=== PATIENT | female | born 1990 | race Caucasian/White ===

== ENCOUNTER 2018-04-20 13:20 | Emergency (ER) | payer OTHER ==
[2018-04-20 13:26] VITALS: BP 131/76; PULSE 66; TEMP 98.6; BMI 34.9
--- NOTE | 2018-04-20 13:55 | PDOC ---
History of Present Illness - General Chief Complaint: Injury Stated Complaint: FALL Time Seen by Provider: 04/20/18 13:22 History Source: Patient Exam Limitations: No Limitations - History of Present Illness Initial Comments: 04/20/18 13:45 Miss Samuels is a otherwise healthy 27-year-old female h/o idiopathic intracranial hypertension who presents emergency department for evaluation status post slip and fall this morning. She stepped on ice as she exited her car, slipped on ice and fell on buttocks She denies loss of consciousness, she denies head trauma. Patient fell onto her buttocks. She's individually with no difficulty. She is currently 11 weeks and is concerned about her . She denies pelvic pain, cramping. She denies vaginal bleeding. PMH: IIH, PSH: denies Meds: denies ALL: NKDA Social: denies toxic habits FH: non contributory ROS: GENERAL/CONSTITUTIONAL: No: fever, chills, weakness HEAD, EYES, EARS, NOSE AND THROAT: No: change in vision, ear pain, discharge, sore throat, throat swelling. CARDIOVASCULAR: No: chest pain, lightheadedness, palpitations, syncope RESPIRATORY: No: cough, shortness of breath, wheezing GASTROINTESTINAL: No: nausea, vomiting, diarrhea, abdominal cramping GENITOURINARY: No: dysuria, hematuria MUSCULOSKELETAL: No: back pain, neck pain, joint pain, muscle swelling or pain SKIN: No: bruising NEUROLOGIC: No: headache, vertigo, paresthesias, weakness PE: GENERAL: The patient is in no acute distress. HEAD: Normal with no signs of trauma. EYES: PERRLA, EOMI, sclera anicteric, conjunctiva clear. ENT: Ears normal, nares patent, oropharynx clear without exudates. Moist mucous membranes. NECK: Normal range of motion, supple without lymphadenopathy, JVD, or masses. LUNGS: Breath sounds equal, clear to auscultation bilaterally. No wheezes, and no crackles. HEART:Regular rate and rhythm, normal S1 and S2 without murmur, rub or gallop. ABDOMEN: Soft, nontender, normoactive bowel sounds. No guarding, no rebound. No masses palpable. EXTREMITIES: Normal range of motion, no edema. No clubbing or cyanosis. No erythema, or tenderness. NEUROLOGICAL: Cranial nerves II through XII grossly intact. Normal speech. No focal neurological deficits. MUSCULOSKELETAL: Back non-tender to palpation, no CVA tenderness SKIN: Warm, Dry, normal turgor, no rashes or lesions noted. 04/20/18 14:01 Past History - Past Medical History Allergies/Adverse Reactions: Allergies Allergy/AdvReac Type Severity Reaction Status Date / Time No Known Allergies Allergy Verified 04/20/18 13:21 Anemia: Yes (sickle cell) COPD: No Other medical history: Leukocytosis, intracranial HTN - Suicide/Smoking/Psychosocial Hx Smoking Status: No Smoking History: Never smoked Have you smoked in the past 12 months: No Number of Cigarettes Smoked Daily: 0 Information on smoking cessation initiated: No Hx Alcohol Use: No Drug/Substance Use Hx: No Substance Use Type: None Hx Substance Use Treatment: No *Physical Exam - Vital Signs Last Vital Signs Temp Pulse Resp BP Pulse Ox 98.6 F 66 18 131/76 100 04/20/18 13:21 04/20/18 13:21 04/20/18 13:21 04/20/18 13:21 04/20/18 13:21 Moderate Sedation - Procedure Monitoring Vital Signs: Procedure Monitoring Vital Signs Temperature 98.6 F 04/20/18 13:21 Pulse Rate 66 04/20/18 13:21 Respiratory Rate 18 04/20/18 13:21 Blood Pressure 131/76 04/20/18 13:21 O2 Sat by Pulse Oximetry (%) 100 04/20/18 13:21 Medical Decision Making - Medical Decision Making 04/20/18 13:55 27 yo F presenting to the ER to evaluate her s/p mechanical fall onto her bottom No vaginal bleeding 04/20/18 15:30 US: IUP 11 weeks, FHR 175 bpm Nml vascular flow to both ovaries (+) fibroid *DC/Admit/Observation/Transfer Diagnosis at time of Disposition: Qualifiers: Weeks of gestation: 11 weeks Qualified Code(s): Z3A.11 - 11 weeks gestation of - Discharge Dispostion Disposition: HOME Condition at time of disposition: Stable Decision to Admit order: No - Referrals - Patient Instructions Printed Discharge Instructions: DI for -- Discomforts and Remedies, How to Prevent Falls Additional Instructions: Ms Samuels Please review your Ultrasound Return to the emergency department immediately with ANY new, persistent or worsening symptoms. Continue any medications as previously prescribed by your physician. You should follow up with your primary doctor as soon as possible regarding today's emergency department visit. . Please make sure your doctor reviews the results of your emergency evaluation. Thank you for coming to the [facility] today for your care. It was a pleasure to see you today. Please note that your evaluation is INCOMPLETE until you follow-up with your doctor. - Post Discharge Activity
== END 2018-04-20 15:52 | disposition home or self-care (01) ==
LOC: FER 13:20
DX: O26.891 Other specified pregnancy related conditions, first trimester (principal); Z3A.11 11 weeks gestation of pregnancy; W00.0XXA Fall on same level due to ice and snow, initial encounter; Y93.89 Activity, other specified; Y92.89 Other specified places as the place of occurrence of the external cause
CPT/HCPCS: 76817-TC; 99281-25

== ENCOUNTER 2022-01-17 18:46 | Observation (INO) | payer OTHER ==
[2022-01-17 19:09] VITALS: BMI 36.2
[2022-01-17] MEDS ORDERED: SODIUM CHLORIDE 0.9% 500 ML INFUS.BAG IV ONE (22:28)
[2022-01-17] MEDS ORDERED: ONDANSETRON 4 MG/2 ML VIAL IVPUSH ONE (22:29)
[2022-01-17] MEDS ORDERED: KETOROLAC TROMETHAMINE 30 MG/1 ML VIAL IVPUSH ONE (22:29)
[2022-01-17] MEDS ORDERED: ONDANSETRON 4 MG/2 ML VIAL ONE (22:32)
[2022-01-17] MEDS ORDERED: KETOROLAC TROMETHAMINE 30 MG/1 ML VIAL ONE (22:32)
[2022-01-17 23:00] LABS: URINE APPEARANCE CLEAR; URINE BILIRUBIN NEGATIVE (NEGATIVE); URINE COLOR YELLOW; URINE GLUCOSE (UA) NEGATIVE (NEGATIVE); URINE KETONE NEGATIVE (NEGATIVE); URINE LEUK ESTERASE NEGATIVE (NEGATIVE); URINE NITRITE NEGATIVE (NEGATIVE); URINE PROTEIN NEGATIVE (NEGATIVE)
[2022-01-17 23:03] LABS: HCG,QUALITATIVE URINE Negative
[2022-01-17] MEDS ORDERED: PHENAZOPYRIDINE HCL 100 MG TABLET (FP) ONE (23:08)
[2022-01-17 23:12] LABS: BASO % 0.5 % (0-2.0); HEMOGLOBIN 11.8 GM/dL (10.7-15.3)
[2022-01-17 23:18] LABS: EOS % 1.9 % (0-4.5); HEMATOCRIT 34.4 % (32.4-45.2); LYMPH % 25.2 % (8-40); MCH 23.8 pg (25.7-33.7); MCHC 34.3 g/dl (32.0-36.0); MEAN CELL VOLUME 69.4 fl (80-96); MONO % 8.5 % (3.8-10.2); NEUT % 63.9 % (42.8-82.8); PLATELET COUNT 213 10^3/uL (134-434); RBC 4.96 M/mm3 (3.60-5.2); RDW 22.5 % (11.6-15.6); WHITE BLOOD COUNT 22.2 K/mm3 (4.0-10.0)
[2022-01-17] MEDS ORDERED: PHENAZOPYRIDINE HCL 100 MG TABLET (FP) PO ONE (23:18)
[2022-01-17 23:34] LABS: CALCIUM 9.1 mg/dL (8.5-10.1)
[2022-01-17 23:35] LABS: ALBUMIN 4.1 g/dl (3.4-5.0); BLOOD UREA NITROGEN 10.1 mg/dL (7-18)
[2022-01-17 23:38] LABS: CREATININE 0.8 mg/dL (0.55-1.3)
[2022-01-17 23:40] LABS: BILIRUBIN,TOTAL 2.4 mg/dL (0.2-1); TOT PROT 7.8 g/dl (6.4-8.2)
[2022-01-18 00:55] LABS: ANISOCYTOSIS 2+; MACROCYTOSIS 0; TARGET CELLS 2+; TEAR DROP CELLS 2+
[2022-01-18] MEDS ORDERED: DOXYCYCLINE HYCLATE 100 MG CAPSULE PO ONE ×2 (04:03→05:39)
[2022-01-18] MEDS ORDERED: CEFTRIAXONE 1,000 MG in DEXTROSE 5%-WATER - 50 ML IVPB ONE (04:03)
[2022-01-18] MEDS ORDERED: CEFTRIAXONE 1 GM/50 ML BAG ONE ×2 (05:39→10:21)
[2022-01-18] MEDS ORDERED: KETOROLAC TROMETHAMINE 15 MG/ML VIAL ONE ×2 (07:54→18:44)
[2022-01-18] MEDS: KETOROLAC TROMETHAMINE 15 MG/ML VIAL IVPUSH PRN ×2 (08:01→18:47)
[2022-01-18] MEDS ORDERED: PHENAZOPYRIDINE HCL 100 MG TABLET (FP) PO SCH (09:00)
[2022-01-18] MEDS ORDERED: CEFTRIAXONE 1,000 MG in DEXTROSE 5%-WATER - 50 ML IVPB SCH (10:00)
[2022-01-18] MEDS ORDERED: ENOXAPARIN NA (PORCINE) 40 MG/0.4 ML DISP.SYRIN SQ ONE (10:20)
[2022-01-18] MEDS: ENOXAPARIN NA (PORCINE) 40 MG/0.4 ML DISP.SYRIN SQ SCH (10:27)
[2022-01-18 10:28] LABS: BASO % 0.3 % (0-2.0); EOS % 2.3 % (0-4.5); HEMATOCRIT 29.9 % (32.4-45.2); HEMOGLOBIN 10.3 GM/dL (10.7-15.3); MCHC 34.5 g/dl (32.0-36.0); MEAN CELL VOLUME 69.6 fl (80-96); MEAN PLT VOLUME 9.5 fl (7.5-11.1); NEUT % 68.4 % (42.8-82.8); RDW 22.1 % (11.6-15.6); WHITE BLOOD COUNT 14.7 K/mm3 (4.0-10.0)
[2022-01-18 10:37] LABS: PLATELET COUNT 141 10^3/uL (134-434)
[2022-01-18 10:42] LABS: CHLORIDE 106 mmol/L (98-107); SODIUM 139 mmol/L (136-145)
[2022-01-18 10:48] LABS: GLUCOSE,RANDOM 112 mg/dL (74-106)
[2022-01-18 10:49] LABS: ALBUMIN 3.5 g/dl (3.4-5.0); ANION GAP 8 MMOL/L (8-16); BLOOD UREA NITROGEN 10.1 mg/dL (7-18); CALCIUM 8.5 mg/dL (8.5-10.1); CO2 24 mmol/L (21-32); MAGNESIUM 1.8 mg/dL (1.8-2.4)
[2022-01-18 10:52] LABS: SGOT/AST 16 U/L (15-37); SGPT/ALT 28 U/L (13-61)
[2022-01-18 10:53] LABS: BILIRUBIN,TOTAL 2.3 mg/dL (0.2-1); CREATININE 0.7 mg/dL (0.55-1.3); PHOSPHOROUS 3.7 mg/dL (2.5-4.9); TOT PROT 6.6 g/dl (6.4-8.2)
[2022-01-18 10:54] LABS: ALK PHOS 93 U/L (45-117)
[2022-01-18 11:04] LABS: PLATELET ESTIMATE ADEQUATE
[2022-01-18] MEDS ORDERED: DOXYCYCLINE HYCLATE 100 MG VIAL ONE (12:29)
[2022-01-18] MEDS: DOXYCYCLINE INJECTION 100 MG in DEXTROSE 5%-WATER 100 ML IVPB SCH ×2 (12:47→22:37)
[2022-01-18] MEDS ORDERED: ONDANSETRON 4 MG/2 ML VIAL ONE (13:12)
[2022-01-18] MEDS ORDERED: ONDANSETRON 4 MG/2 ML VIAL IVPUSH ONE ×2 (14:00→21:21)
[2022-01-18] MEDS ORDERED: PHENAZOPYRIDINE HCL 100 MG TABLET (FP) PO ONE (23:07)
[2022-01-19] MEDS: DOXYCYCLINE INJECTION 100 MG in DEXTROSE 5%-WATER 100 ML IVPB SCH ×2 (09:48→21:52)
[2022-01-19] MEDS: CEFTRIAXONE 1 GM in DEXTROSE 5%-WATER - 50 ML IVPB SCH (09:48)
[2022-01-19] MEDS: ENOXAPARIN NA (PORCINE) 40 MG/0.4 ML DISP.SYRIN SQ SCH ×2 (09:48→09:56)
[2022-01-19 10:52] LABS: BASO % 0.6 % (0-2.0); EOS % 2.2 % (0-4.5); HEMATOCRIT 30.3 % (32.4-45.2); HEMOGLOBIN 10.3 GM/dL (10.7-15.3); LYMPH % 24.5 % (8-40); MCH 23.5 pg (25.7-33.7); MEAN CELL VOLUME 69.2 fl (80-96); MEAN PLT VOLUME 9.4 fl (7.5-11.1); MONO % 8.5 % (3.8-10.2); NEUT % 64.2 % (42.8-82.8); PLATELET COUNT 141 10^3/uL (134-434); RBC 4.37 M/mm3 (3.60-5.2); RDW 22.7 % (11.6-15.6); WHITE BLOOD COUNT 12.9 K/mm3 (4.0-10.0)
[2022-01-19 11:08] LABS: ALBUMIN 3.2 g/dl (3.4-5.0); CALCIUM 8.6 mg/dL (8.5-10.1)
[2022-01-19 11:09] LABS: BLOOD UREA NITROGEN 13.2 mg/dL (7-18)
[2022-01-19 11:11] LABS: CREATININE 0.7 mg/dL (0.55-1.3)
[2022-01-19 11:13] LABS: BILIRUBIN,TOTAL 1.8 mg/dL (0.2-1); TOT PROT 6.4 g/dl (6.4-8.2)
[2022-01-20] MEDS: KETOROLAC TROMETHAMINE 15 MG/ML VIAL IVPUSH PRN (03:06)
[2022-01-20 07:52] LABS: BASO % 0.4 % (0-2.0); EOS % 2.7 % (0-4.5); HEMATOCRIT 31.6 % (32.4-45.2); HEMOGLOBIN 10.9 GM/dL (10.7-15.3); MCH 23.8 pg (25.7-33.7); MCHC 34.4 g/dl (32.0-36.0); MEAN CELL VOLUME 69.1 fl (80-96); MEAN PLT VOLUME 9.8 fl (7.5-11.1); MONO % 9.1 % (3.8-10.2); NEUT % 60.8 % (42.8-82.8); PLATELET COUNT 164 10^3/uL (134-434); RBC 4.57 M/mm3 (3.60-5.2); RDW 22.2 % (11.6-15.6); WHITE BLOOD COUNT 15.8 K/mm3 (4.0-10.0)
[2022-01-20 08:25] VITALS: RESP 19
[2022-01-20 08:28] LABS: ALBUMIN 3.4 g/dl (3.4-5.0); BLOOD UREA NITROGEN 9.9 mg/dL (7-18); CALCIUM 8.5 mg/dL (8.5-10.1)
[2022-01-20 08:30] LABS: CREATININE 0.7 mg/dL (0.55-1.3)
[2022-01-20 08:33] LABS: TOT PROT 6.7 g/dl (6.4-8.2)
[2022-01-20] MEDS: ENOXAPARIN NA (PORCINE) 40 MG/0.4 ML DISP.SYRIN SQ SCH (09:09)
[2022-01-20] MEDS: CEFTRIAXONE 1 GM in DEXTROSE 5%-WATER - 50 ML IVPB SCH (09:09)
[2022-01-20] MEDS: DOXYCYCLINE INJECTION 100 MG in DEXTROSE 5%-WATER 100 ML IVPB SCH (09:10)
[2022-01-20 09:20] LABS: PLATELET ESTIMATE ADEQUATE
[2022-01-20 15:44] VITALS: BP 125/80; PULSE 81; TEMP 98.4
== END 2022-01-20 17:01 | disposition home or self-care (01) ==
LOC: JERFT 18:46 → JERBED 01-18 04:00 → J5S 01-18 19:29
PROVIDERS: ADMIT Internal Medicine
PROC: 3E03329 Introduction of Other Anti-infective into Peripheral Vein, Percutaneous Approach (ICD-10-PCS; principal; 2022-01-18)
PROC: 3E023GC Introduction of Other Therapeutic Substance into Muscle, Percutaneous Approach (ICD-10-PCS; 2022-01-18)
PROC: 3E0333Z Introduction of Anti-inflammatory into Peripheral Vein, Percutaneous Approach (ICD-10-PCS; 2022-01-18)
PROC: 3E033GC Introduction of Other Therapeutic Substance into Peripheral Vein, Percutaneous Approach (ICD-10-PCS; 2022-01-18)
PROC: 3E0337Z Introduction of Electrolytic and Water Balance Substance into Peripheral Vein, Percutaneous Approach (ICD-10-PCS; 2022-01-18)
DX: N83.201 Unspecified ovarian cyst, right side (principal); D57.3 Sickle-cell trait; G93.2 Benign intracranial hypertension; Z29.8 Encounter for other specified prophylactic measures; R10.30 Lower abdominal pain, unspecified; E66.01 Morbid (severe) obesity due to excess calories; Z68.38 Body mass index [BMI] 38.0-38.9, adult; R16.1 Splenomegaly, not elsewhere classified; D72.829 Elevated white blood cell count, unspecified; D64.9 Anemia, unspecified; R10.2 Pelvic and perineal pain
CPT/HCPCS: 36415; 74177-TC; 76830-TC; 80053; 81003; 83735; 84100; 84702; 84703; 85025; 86780; 87070; 87086; 87205; 87491; 87591; 87661; 96365; 96366; 96367; 96372; 96375; 96376; 99285-25; C9803-CS; G0378; Q9967; U0003; U0005